=== PATIENT | male | born 1970 | race Caucasian/White ===

== ENCOUNTER 2016-06-28 17:55 | Emergency (ER) | payer MEDICAID ==
[~2016-06-28] VITALS: Ht 188 cm; Wt 133.8 kg
[2016-06-28 17:56] VITALS: BP 152/72
[2016-06-28] MEDS ORDERED: PROA1AER INH (18:06)
[2016-06-28] MEDS ORDERED: TESS100C PO (18:42)
[2016-06-28] MEDS ORDERED: PRED20TA PO (18:42)
[2016-06-28] MEDS ORDERED: AUGM875T27 PO (18:42)
[2016-06-28] MEDS ORDERED: ALBU17IN INH (18:42)
== END 2016-06-28 18:59 | disposition home or self-care (01) ==
LOC: M ED 18:51
DX: J45.901 Unspecified asthma with (acute) exacerbation (principal); J01.90 Acute sinusitis, unspecified